=== PATIENT | male | born 2005 | race African-American/Black ===

== ENCOUNTER 2025-08-10 22:11 | Emergency (ER) | payer OTHER ==
[2025-08-10] MEDS ORDERED: HYDROcodone/Acetaminophen 5/325 mg Tablet ONE (23:28)
== END 2025-08-10 23:34 | disposition home or self-care (01) ==
LOC: ERS 22:11
DX: K08.89 Other specified disorders of teeth and supporting structures (principal)
CPT/HCPCS: 99282